=== PATIENT | male | born 1990 | race Caucasian/White ===

== ENCOUNTER 2024-01-24 11:35 | Emergency (ER) | payer SELFPAY ==
[2024-01-24 11:37] VITALS: BP 146/94; PULSE 64; RESP 18; TEMP 37.3; O2SAT 98; BMI 25.1
--- NOTE | 2024-01-24 11:57 | ED.NAVMDI1 ---
HPI - Nausea/Vomiting/Diarrhea General Chief complaint: Nausea/Vomiting/Diarrhea Stated complaint: NAUSEA/VOMITING Time Seen by Provider: 01/24/24 11:57 Source: patient Mode of arrival: walk-in History of Present Illness HPI Narrative: This very pleasant 33-year-old is here running out of vomiting and diarrhea. He has had at least 4 episodes of diarrhea over the last 24 hours. The symptoms were preceded by cough congestion and sore throat. He does have some sick contact with family members. He is otherwise extremely healthy and not on any medications. He denies any headache or severe pain in his neck. No confusion. He has not taken any medications. No heavy tobacco or alcohol use. Related Data Home Medications Medication Instructions Recorded Confirmed escitalopram oxalate 5 mg tablet 5 mg PO QAM 01/24/24 01/24/24 Allergies Allergy/AdvReac Type Severity Reaction Status Date / Time No Known Drug Allergies Allergy Verified 01/24/24 11:43 Exam Narrative Exam Narrative: Very pleasant awake alert he is dry heaving when I initially evaluate him it is difficult for difficult for him to communicate. Overall his vital signs are stable and he is not tachycardic. He is very pleasant cognition and mentation are completely normal. I did reevaluate him after we medicated him His belly is benign with no tenderness guarding masses rebound or rigidity there is no peritoneal findings. No tenderness at McBurney's point. ENT examination did not show any focus of infection. Skin and integument are normal. He does feel substantially better after IV fluids and medications. This is most consistent with influenza Constitutional Vital Signs, click to edit/add: Last Vital Signs Temp 99.1 F 01/24/24 11:37 Pulse 64 01/24/24 11:37 Resp 18 01/24/24 11:37 BP 146/94 H 01/24/24 11:37 Pulse Ox 98 01/24/24 11:37 O2 Del Method Room Air 01/24/24 11:37 Course Vital Signs Vital signs: Vital Signs Temperature 99.1 F 01/24/24 11:37 Pulse Rate 64 01/24/24 11:37 Respiratory Rate 18 01/24/24 11:37 Blood Pressure 146/94 H 01/24/24 11:37 Pulse Oximetry 98 01/24/24 11:37 Oxygen Delivery Method Room Air 01/24/24 11:37 Temperature 99.1 F 01/24/24 11:37 Pulse Rate 64 01/24/24 11:37 Respiratory Rate 18 01/24/24 11:37 Blood Pressure 146/94 H 01/24/24 11:37 Pulse Oximetry 98 01/24/24 11:37 Oxygen Delivery Method Room Air 01/24/24 11:37 MDM - Nausea/Vomiting/Diarrhea MDM Narrative Medical decision making narrative: Patient presents with exposure to others who have been sick with classic URI symptoms transgressing into GI symptomatology. This is most consistent with influenza. He is okay without doing further testing. We did rule out electrolyte disorder and treated him. He feels better Discharge Plan Discharge Chief Complaint: Nausea/Vomiting/Diarrhea Clinical Impression: Acute dehydration Patient Disposition: Home, Self-Care Time of Disposition Decision: 12:50 Prescriptions / Home Meds: No Action escitalopram oxalate 5 mg tablet 5 mg PO QAM Additional Instructions: Clear fluids in small but frequent sips only for the next 24 hours. May use Zofran as needed. Limited dosing of [id number] Imodium. Referrals: Physician,Non-Staff, MD [Primary Care Provider] - 1 week Stand Alone Forms: Portal Instructions
[2024-01-24 12:06] LABS: Basophils Percent Auto 0.5 % (0.2-2.0); Eosinophils Absolute Auto 0.1 10^3/uL (0.0-0.7); Eosinophils Percent Auto 1.9 % (0.9-7.0); Hematocrit 50.1 % (42.0-54.0); Hemoglobin 17.6 g/dL (14.0-18.0); Immature Granulocytes Abs Auto 0.02 10^3/uL (0.00-0.03); Immature Granulocytes Pct Auto 0.3 % (0.0-0.5); Lymphocytes Absolute Auto 2.1 10^3/uL (1.2-3.8); Mean Corpuscular HGB Conc 35.1 g/dL (29.9-35.2); Mean Corpuscular Hemoglobin 30.7 pg (25.9-34.0); Mean Corpuscular Volume 87.3 fL (80.0-94.0); Mean Platelet Volume 10.1 fL (9.5-13.5); Monocytes Absolute Auto 0.8 10^3/uL (0.3-0.8); Monocytes Percent Auto 13.7 % (1.7-12.0); Neutrophils Absolute Auto 2.8 10^3/uL (1.4-6.5); Neutrophils Percent Auto 47.6 % (43.0-75.0); Platelet Count 240 10^3/uL (150-450); Red Blood Count 5.74 10^6/uL (4.70-6.10); Red Cell Distribution Width 12.2 % (11.0-15.0); White Blood Count 5.9 10^3/uL (4.0-11.0)
[2024-01-24 12:12] LABS: Anion Gap 17.5; BUN Creatinine Ratio 15.7; Calcium 8.9 mg/dL (8.5-10.1); Carbon Dioxide 25.3 mmol/L (21.0-32.0); Chloride 100 mmol/L (98-107); Estimated GFR (African America >60 (>=60); Estimated GFR (Non-African Ame >60 (>=60); Glucose 102 mg/dL (74-106); Potassium 3.8 mmol/L (3.5-5.1); Sodium 139 mmol/L (136-145)
[2024-01-24] MEDS: 0.9 % SODIUM CHLORIDE 1,000 ML 999 ML IV ×2 (12:20→12:45)
[2024-01-24] MEDS: DIPHENOXYLATE HCL 2.5 MG/ATROPINE 0.025 MG TABLET 1 TAB PO (12:20)
[2024-01-24] MEDS: ONDANSETRON PF 4 MG/2 ML VIAL IV (12:22)
--- NOTE | 2024-01-24 12:41 | PC.NURSE ---
patient c/o NVD for a few days. states the only thing that made him feel better was a hot shower. patient has not been able to keep food or fluids down. also reports diarrhea multiple times. patient has not had any new foods or changes to routine. skin is pale, warm, dry. episode of vomiting during triage. IV initiated, patient placed in gown.
== END 2024-01-24 14:04 | disposition home or self-care (01) ==
PROVIDERS: Emergency Provider Emergency Medicine Emergency Medical Services
DX: E86.0 Dehydration (principal); Z79.899 Other long term (current) drug therapy
CPT/HCPCS: 36415; 80048; 83690; 85025; 96374; 99284